=== PATIENT | male | born 1940 | race Two or more races ===

== ENCOUNTER 2019-12-12 06:18 | Day surgery (SDC) | payer BC ==
[~2019-12-12] VITALS: Ht 180.3 cm; Wt 82.6 kg
[~2019-12-12 06:18] MED LIST: LISI-646 PO; LISI40TA PO; METO25TA5 PO; NIFE1TAB31 PO; SIMV-8 PO; TERA1CAP33 PO
[2019-12-12] MEDS ORDERED: LIDOCAINE 1% HCL (LOCAL ANESTH.) INJ 20ML MDV ONE (07:06)
[2019-12-12] MEDS ORDERED: HEPARIN SODIUM (PORCINE) 5000 UNITS/ML 1ML VIAL ONE (07:09)
[2019-12-12] MEDS ORDERED: ceFAZolin 1GM/50ML 100 ML IV ONE (07:10)
[2019-12-12] MEDS ORDERED: fentaNYL CITRATE 100 MCG/2 ML VL ONE (07:11)
[2019-12-12] MEDS ORDERED: SODIUM CHLORIDE LOCK 10 ML ONE (07:11)
[2019-12-12] MEDS ORDERED: ROCURONIUM 10MG/ML 10ML VIAL IV ONE (07:11)
[2019-12-12] MEDS ORDERED: ETOMIDATE (2MG/ML) 20ML VIAL IV ONE (07:11)
[2019-12-12] MEDS ORDERED: PROPOFOL 10 MG/ML 20 ML IV ONE (07:11)
[2019-12-12] MEDS ORDERED: ONDANSETRON HCL 4 MG/2 ML VIAL ONE (07:11)
[2019-12-12] MEDS ORDERED: MEPERIDINE HCL (25 MG/ML) 1ML VIAL ONE (07:11)
[2019-12-12] MEDS ORDERED: MIDAZOLAM HCL 1MG/1ML-2 ML VIAL ONE (07:11)
[2019-12-12] MEDS ORDERED: BUPIVACAINE W/ EPINEPH 0.5% MPF 30ML VIAL IJ ONE (07:14)
[2019-12-12] MEDS ORDERED: SUCCINYLCHOLINE CHLORIDE 20 MG/ML 10ML VIAL IV ONE (07:14)
[2019-12-12] MEDS ORDERED: BUPIVACAINE 0.25% INJ 50ML VIAL ONE (07:14)
[2019-12-12] MEDS ORDERED: LIDOCAINE W/ EPINEPHRINE 1% 20ML VIAL ONE (07:14)
[2019-12-12 08:52] VITALS: BP 145/84
== END 2019-12-12 09:10 | disposition home or self-care (01) ==
LOC: EDSEX → SUR 06:18
PROVIDERS: ATTEND Surgery
DX: Z53.8 Procedure and treatment not carried out for other reasons (principal); K40.90 Unilateral inguinal hernia, without obstruction or gangrene, not specified as recurrent; I10 Essential (primary) hypertension; I25.2 Old myocardial infarction; I20.9 Angina pectoris, unspecified; J44.9 Chronic obstructive pulmonary disease, unspecified; E78.5 Hyperlipidemia, unspecified; Z95.818 Presence of other cardiac implants and grafts; Z88.5 Allergy status to narcotic agent; Z87.891 Personal history of nicotine dependence; Z95.1 Presence of aortocoronary bypass graft; Z79.899 Other long term (current) drug therapy
CPT/HCPCS: 49505; 93005; J0330; J0690; J1644; J2001; J2250; J2405; J2704; J3010; J3490

== ENCOUNTER 2020-07-13 04:22 | Emergency (ER) | payer BC ==
[~2020-07-13] VITALS: Ht 167.6 cm; Wt 79.8 kg
[~2020-07-13 04:22] MED LIST changes: -LISI40TA PO; +LISI40TA11 PO
[2020-07-13 06:29] LABS: Urine Amorphous Crystal FEW /hpf (None Seen); Urine Bacteria FEW /hpf (None Seen); Urine Blood 2+ /uL (Negative); Urine Mucus FEW (None Seen); Urine Specific Gravity 1.013 (1.001-1.035); Urine WBC 28 /hpf (0 - 3)
[2020-07-13 06:34] LABS: Basophils # (auto) 0 10 ^3/uL (0-0.2); Basophils % (auto) 0.4 % (0.0-2.0); Eosinophils # (auto) 0 10 ^3/uL (0-0.8); Eosinophils % (auto) 0.2 % (0.0-7.0); Hematocrit 36.7 % (41.0-53.0); Hemoglobin 12.5 g/dL (13.5-17.5); Lymphocytes # (auto) 0.9 10 ^3/uL (0.4-5.4); Lymphocytes % (auto) 26.5 % (10.0-50.0); Mean Corpuscular Hemoglobin 30.5 pg (28.0-32.0); Mean Corpuscular Hgb Conc. 34.1 g/dL (32.0-36.0); Mean Corpuscular Volume 89.5 fL (80.0-100.0); Monocytes # (auto) 0.3 10 ^3/uL (0-1.3); Monocytes % (auto) 9.1 % (0.0-12.0); Neutrophils # (auto) 2.2 10 ^3/uL (1.6-8.6); Neutrophils % (auto) 63.8 % (37.0-80.0); Nucleated Red Blood Cells % 0.1 %; Platelet Count (auto) 114 10^3/uL (140-450); Red Cell Distribution Width 14.4 % (11.8-14.3); White Blood Cell 3.4 10^3/uL (4.4-10.8)
[2020-07-13 06:43] LABS: Albumin 3.3 g/dL (3.4-5.0); Calcium 8.3 mg/dL (8.5-10.1); Potassium 3.5 mmol/L (3.5-5.1)
[2020-07-13 06:46] LABS: Bilirubin, Total 0.8 mg/dL (0.2-1.0); Total Protein 6.9 g/dL (6.4-8.2)
[2020-07-13] MEDS ORDERED: SODIUM CHLORIDE 0.9% 1,000 ML IV ONE (08:15)
[2020-07-13] MEDS ORDERED: cefTRIAXone 1GM/50ML D5W 50 ML IV ONE (08:15)
[2020-07-13] MEDS ORDERED: MORPHINE SULF INJ 2 MG/ML SYRINGE 1ML IV ONE (12:00)
[2020-07-13] MEDS ORDERED: traMADol HCL 50 MG TAB PO ONE (12:15)
[2020-07-13 13:14] VITALS: BP 188/96
== END 2020-07-13 13:17 | disposition home or self-care (01) ==
LOC: EDBD 04:22 → ER 04:22
DX: T83.89XD Other specified complication of genitourinary prosthetic devices, implants and grafts, subsequent encounter (principal); N39.0 Urinary tract infection, site not specified; R33.9 Retention of urine, unspecified; I10 Essential (primary) hypertension; I48.20 Chronic atrial fibrillation, unspecified; E46 Unspecified protein-calorie malnutrition; K40.90 Unilateral inguinal hernia, without obstruction or gangrene, not specified as recurrent; E78.5 Hyperlipidemia, unspecified; Z79.899 Other long term (current) drug therapy; Z88.5 Allergy status to narcotic agent
CPT/HCPCS: 36415; 80053; 81001; 83615; 85025; 93005; 96365; 99284; J0696; J7030